=== PATIENT | female | born 1960 | race Caucasian/White ===

== ENCOUNTER 2019-11-03 09:50 | Outpatient (CLI) | payer OTHER, SELFPAY ==
--- NOTE | ~2019-11-03 | MM_ITS ---
EXAMINATION: MM screening radha BI w martin HISTORY: Screening mammogram TECHNIQUE: Craniocaudal and mediolateral oblique 3-D tomosynthesis images were obtained and synthetic 2-D images were generated. CAD analysis was submitted and interpreted. COMPARISON: No prior mammogram is available for comparison at this institution. BREAST PARENCHYMAL COMPOSITION: There are scattered areas of fibroglandular density. FINDINGS: History of left partial mastectomy and radiation treatment for breast cancer in 1998. There are surgical clips adjacent to an approximately 9 mm spiculated opacity in the posterior upper outer left breast, with overlying retraction. An adjacent spiculated opacity is suggested. Diagnostic left mammogram is recommended, with left uri st ultrasound if required. IMPRESSION: 1. Spiculated opacities in the posterior upper outer left breast. Comparison with any prior available mammograms would be helpful 2. Diagnostic left mammogram is recommended, with left breast ultrasound is needed BI-RADS Category 0: Incomplete: Needs additional imaging evaluation. Reviewed, dictated and finalized at location A. IMPRESSION: 1. Spiculated opacities in the posterior upper outer left breast. Comparison wi th any prior available mammograms would be helpful 2. Diagnostic left mammogram is recommended, with left breast ultrasound is nee ded BI-RADS Category 0: Incomplete: Needs additional imaging evaluation.
== END 2019-11-03 09:51 | disposition home or self-care (01) ==
PROVIDERS: PCP Family Medicine
DX: Z12.31 Encounter for screening mammogram for malignant neoplasm of breast (principal); R92.8 Other abnormal and inconclusive findings on diagnostic imaging of breast
CPT/HCPCS: 77063; 77067

== ENCOUNTER 2019-11-29 12:27 | Outpatient (CLI) | payer OTHER, SELFPAY ==
--- NOTE | ~2019-11-29 | MM_ITS ---
EXAMINATION: MM diagnostic mammo unilat LT HISTORY: Left breast asymmetry on screening mammogram adjacent to an area of lumpectomy change. TECHNIQUE: Additional 3-D tomosynthesis images of the left breast were performed and synthetic 2-D im ages were generated. CAD analysis was submitted and interpreted. COMPARISON: 11/03/2019, 04/27/2018, 04/17/2017 FINDINGS: No persistent asymmetry is identified in the left breast with spot compression views. There are stable lumpectomy changes in the posterior third of the upper outer quadrant of the breast. No s uspicious calcification is identified. IMPRESSION: 1. No mammographic evidence of malignancy. 2. Recommend routine screening mammography in one year. BI-RADS Category 2: Benign finding(s). Reviewed, dictated and finalized at location A.
== END 2019-11-29 12:28 | disposition home or self-care (01) ==
LOC: ANHIMG 12:31
PROVIDERS: PCP Family Medicine
DX: Z85.3 Personal history of malignant neoplasm of breast (principal)
CPT/HCPCS: 77065

== ENCOUNTER 2020-10-13 10:07 | Emergency (ER) | payer BC, SELFPAY ==
[2020-10-13 10:15] VITALS: BP 117/64; PULSE 98; RESP 18; TEMP 36.4; O2SAT 99
--- NOTE | 2020-10-13 10:18 | ED.FEMALEGU ---
HPI - Female Genitourinary General Chief complaint: Urogenital-Female Stated complaint: uti symptoms Time Seen by Provider: 10/13/20 10:19 Source: patient and RN notes reviewed History of Present Illness HPI Narrative: Patient is a 6-year-old female who presents the urgent care with complaints of a possible UTI. Patient states her symptoms of dysuria, frequency, urgency started last night and she started taking Azo this morning at 8 AM. Patient states she also took Tylenol last night for the suprapubic pressure/tenderness. Patient does have a history of UTIs but has not had one in over 1 year. Patient denies any blood in the urine, fever, nausea, vomiting. No other acute complaints. No acute distress noted. Patient aware of the plan of care. Some parts of this dictation were generated by voice recognition software and may contain typographical and/or grammatical inaccuracies. Related Data Home Medications Medication Instructions Recorded Confirmed folic acid 1 mg tablet 1 mg PO DAILY 03/24/19 03/27/20 hydroxychloroquine 200 mg tablet 200 mg PO BID 03/24/19 03/27/20 methotrexate (PF) 20 mg/0.4 mL 20 mg SUB-Q WEEKLY 03/25/19 03/27/20 subcutaneous auto-injector cholecalciferol (vitamin D3) 625 625 mcg PO WEEKLY 02/17/20 03/27/20 mcg (25,000 unit) capsule Allergies Allergy/AdvReac Type Severity Reaction Status Date / Time No Known Allergies Allergy Unverified 03/27/20 10:33 Review of Systems Review of Systems: Narrative: CONSTITUTIONAL: Denies fever, chills, or sweats. EYES: Denies visual changes, redness, or discharge. ENT: Denies rhinorrhea, congestion, sore throat, or otalgia. CARDIOVASCULAR: Denies chest pain, palpitations, or edema. RESPIRATORY: Denies cough or dyspnea. GASTROINTESTINAL: Denies abdominal pain, nausea, vomiting, or diarrhea. GENITOURINARY: Reports of dysuria, suprapubic tenderness, frequency, urgency SKIN: Denies rash or itching. MUSCULOSKELETAL: Denies back pain, joint pain, or myalgia. NEUROLOGIC: Denies headache, numbness, or weakness. All other systems reviewed are negative, except as documented in HPI. [facility] Past Medical History Medical History (Updated 07/10/21 @ 10:31 by ROSY Holly) Acquired left ventricular hypertrophy Controlled familial restless legs syndrome Familial hyperlipoproteinemia type IIb Insomnia, psychophysiological Rheumatoid arthritis with rheumatoid factor of multiple sites without organ or systems involvement Family History Family History (Updated 03/27/19 @ 11:16 by Fifi Chairez MD) Mother Family history of cardiovascular disease Family history of arthritis CHF (NYHA class IV, ACC/AHA stage D) Sibling Patient's sister is in good health Father Family history of kidney disease, Onset Age: 321 Social History Social History (Updated 03/27/20 @ 10:35 by Angelina Orta [facility]) Smoking status: Never smoker Second hand tobacco smoke exposure: No Alcohol intake: current Drinks per week: 1 Substance use type: does not use Gender identity (if verbalized by the patient): Female Comments At the time of my signature, I reviewed and agree with the nursing past medical, surgical, social, and family history. There is no relevant family history pertinent to the patient complaint. Exam Narrative: Exam Narrative: GENERAL: This is a well-nourished, well-developed patient, in no apparent distress. HEAD: normocephalic, atraumatic. EYES: PERRL. Sclera clear/white. Vision is grossly intact. EARS: External ears normal NOSE: External nose normal with no obvious nasal discharge, nares without redness, no rhinorrhea. THROAT: Mucous membranes moist NECK: Neck supple CARDIOVASCULAR: Regular rate and rhythm without murmurs, gallops, or rubs. RESPIRATORY: Clear to auscultation. Breath sounds equal bilaterally. No wheezes, rales, or rhonchi. GASTROINTESTINAL: Abdomen soft, suprapubic tenderness, nondistended. Star
== END 2020-10-13 10:38 | disposition home or self-care (01) ==
PROVIDERS: Emergency Provider Nurse Practitioner Family; PCP Family Medicine
DX: N39.0 Urinary tract infection, site not specified (principal); E78.00 Pure hypercholesterolemia, unspecified; M05.9 Rheumatoid arthritis with rheumatoid factor, unspecified
CPT/HCPCS: 81003; 87077; 87086; 87088; 87186; 99213; G0463

== ENCOUNTER 2020-11-22 12:33 | Outpatient (CLI) | payer BC, SELFPAY ==
--- NOTE | ~2020-11-22 | MM_ITS ---
EXAMINATION: MM diagnostic radha BI w martin HISTORY: History of left breast cancer TECHNIQUE: Craniocaudal, mediolateral, and mediolateral oblique 3-D tomosynthesis images of the breas ts were performed and synthetic 2-D images were generated. CAD analysis was submitted and interpreted . COMPARISON: 11/29/2019, 11/03/2019, 05/28/2018, 04/17/2017 BREAST PARENCHYMAL COMPOSITION: The breasts are almost entirely fatty. FINDINGS: Stable lumpectomy changes are present in the upper outer quadrant of the left breast. There is no suspicious mass, calcification, or architectural distortion in either breast to suggest malign steph. No significant interval change is identified. IMPRESSION: 1. No mammographic evidence of malignancy. 2. Recommend routine screening mammography in one year. BI-RADS Category 2: Benign finding(s). Reviewed, dictated and finalized at location A.
== END 2020-11-22 12:34 | disposition home or self-care (01) ==
PROVIDERS: PCP Family Medicine
DX: R92.8 Other abnormal and inconclusive findings on diagnostic imaging of breast (principal); Z85.3 Personal history of malignant neoplasm of breast
CPT/HCPCS: 77062; 77066; G0279

== ENCOUNTER → 2021-11-04 12:03 | Outpatient (CLI) | payer BC, SELFPAY ==
--- NOTE | ~2021-11-04 | XR_ITS ---
XR sacroiliac joints min 3V DATE: 11/04/2021 12:35 INDICATION: Chronic sacroiliac pain TECHNIQUE: AP and bilateral oblique views COMPARISON: None FINDINGS: Prominent degenerative disc disease at L4-5 and L5-S1. Normal alignment at the pubic symphysis and sacroiliac joints. No erosive change or ankylosis, fractu re or dislocation at either sacroiliac joint. IMPRESSION: No significant abnormality at the sacroiliac joints Prominent degenerative disc disease at L4-5 and L5-S1 Reviewed, dictated and finalized at Location A. Reviewed, dictated and finalized at location B.
== END ==
PROVIDERS: PCP Family Medicine; Visit Provider Internal Medicine Rheumatology
DX: M53.3 Sacrococcygeal disorders, not elsewhere classified (principal); M51.37 Other intervertebral disc degeneration, lumbosacral region
CPT/HCPCS: 72202

== ENCOUNTER 2022-01-23 10:27 | Outpatient (CLI) | payer BC, SELFPAY ==
--- NOTE | ~2022-01-23 | MM_ITS ---
EXAMINATION: MM screening radha BI w martin HISTORY: Screening TECHNIQUE: Craniocaudal and mediolateral oblique 3-D tomosynthesis images were obtained and synthetic 2-D images were generated. CAD analysis was submitted and interpreted. COMPARISON: Comparison to multiple prior studies sequentially, with oldest reviewed study dated 2. BREAST PARENCHYMAL COMPOSITION: Breast composed of scattered areas of fibroglandular density FINDINGS: Stable architectural distortion in the upper outer quadrant of the left breast, consistent with previous lumpectomy. There is no evidence of suspicious mass, calcification, or architectural di stortion to suggest malignancy in either breast. There has been no suspicious interval change. IMPRESSION: 1. No mammographic evidence of malignancy. 2. Recommend routine screening mammography in one year. BI-RADS Category 2: Benign finding(s). Reviewed, dictated and finalized at location A.
== END 2022-01-23 10:28 | disposition home or self-care (01) ==
PROVIDERS: PCP Family Medicine
DX: Z12.31 Encounter for screening mammogram for malignant neoplasm of breast (principal)
CPT/HCPCS: 77063; 77067